=== PATIENT | male | born 1955 | race African-American/Black ===

== ENCOUNTER 2024-06-20 21:07 | Observation (INO) ==
[2024-06-20 21:36] LABS: Basophils # (auto) 0.02 K/uL (0.00-0.20); Basophils % (auto) 0.5 %; Eosinophils # (auto) 0.04 K/uL (0.00-0.50); Eosinophils % (auto) 0.9 %; Hematocrit (blood only) 41.9 % (42.0-52.0); Hemoglobin 14.1 g/dl (14.0-18.0); Immature Granulocytes # (auto) 0.05 K/uL (0.01-0.20); Immature Granulocytes % (auto) 1.2 %; Lymphocytes # (auto) 1.73 K/uL (1.20-3.40); Mean Corpuscular Hemoglobin 27.6 pg (25.0-34.0); Mean Corpuscular Hgb Conc 33.7 g/dL (32.0-36.0); Mean Platelet Volume 9.8 fL (9.4-12.4); Monocytes # (auto) 0.71 K/uL (0.11-0.59); Monocytes % (auto) 16.4 %; Neutrophils # (auto) 1.78 K/uL (1.40-6.50); Platelet Count 175 K/uL (130-400); RDW Coefficient of Variation 13.3 % (11.5-14.5); RDW Standard Deviation 40.2 fL (36.4-46.3); Red Blood Count 5.11 M/uL (4.70-6.10); White Blood Count 4.33 K/ul (4.8-10.8)
[2024-06-20 21:54] LABS: Albumin Globulin Ratio 1.1 (0.9-2); Albumin Level 3.9 gm/dl (3.4-5.0); BUN Creatinine Ratio 12.3 (10-20); Bilirubin,Total 0.4 mg/dl (0.2-1.0); Creatinine Clr Calc Pharmacy 30.5 ml/min; Globulin 3.5 gm/dl (2.5-4.0); Potassium 4.2 mmol/L (3.5-5.1); Total Protein 7.4 gm/dl (6.0-8.3)
[2024-06-20 22:00] LABS: Troponin I High Sensitivity 4.9 pg/ml (0-20)
[2024-06-20 22:07] LABS: Partial Thromboplastin Ratio 0.9; Partial Thromboplastin Time 25 Seconds (21-31); Prothrombin Time 10.9 Seconds (9.0-12.0)
--- NOTE | 2024-06-20 23:25 | XRay Report ---
Exam(s): XR CXR 1 VIEW EXAM: XR Chest, 1 View CLINICAL HISTORY: Reason for exam: Chest pain, nonspecific. TECHNIQUE: Frontal views of the chest. COMPARISON: No relevant prior studies available. FINDINGS: Lungs: No consolidation. Pleural space: No pleural effusion is seen. No pneumothorax. Heart: The heart is normal in size.. Mediastinum: There is uncoiling of the thoracic aorta.. Bones/joints: There are degenerative changes in the spine.. IMPRESSION: No acute pulmonary disease.. Electronically signed by: Michael Dallas MD 06/20/24 23:24 PM
[2024-06-20] MEDS: SODIUM CHLORIDE 0.9% 1,000 ML IV ONE (23:43)
[2024-06-20 23:52] LABS: Magnesium 1.7 mg/dl (1.7-2.4)
--- NOTE | 2024-06-21 00:01 | Emergency Department Note ---
Impression & Plan Syncope, ESTHELA (acute kidney injury), Influenza, CHI (closed head injury), Right bundle branch block, Orthostatic hypotension ED Provider Note ED Provider Note NAME: KVNG [id number] SOTO AGE:69 SEX: Male : 1955 ARRIVES VIA: EMS INFORMANT: Patient ED PROVIDER(s): Coni Koenig DO CHIEF COMPLAINT: Syncope HPI: This is a 69-year-old male presents to the emergency department due to concern for syncopal event. Patient states he feels fine at this time. He does not recall any preceding or prodromal symptoms. He states he has previously passed out and feels it was likely from the strong smell of incense in the temple at the correctional facility. Patient does have a history of CAD and diabetes. Patient denies any recent change in medications. Patient does feel he staying well-hydrated. Patient states he has had nasal congestion and cough in the last 2 to 3 days and correctional officers at bedside state there have been many other illnesses at the facility. He denies fevers, chills, headaches, blurred vision, chest pain, shortness of breath, abdominal pain, change in urine, change in stools, or leg swelling. Patient states he was putting something away in his cabinet and the next thing he knew he was on the floor. He states witnesses at bedside stated he had passed out. No seizure-like activity was reported. When he was checked by staff he was noted to be hypotensive. They also report he had 2 subsequent episodes of syncope. Patient denied any incontinence or tongue biting during these episodes. PAST MEDICAL HISTORY:See Below PAST SURGICAL HISTORY:See Below FAMILY HISTORY:See Below SOCIAL HISTORY:See Below HOME MEDICATIONS:See Below ALLERGIES:See Below VITALS:See Below PHYSICAL EXAMINATION: GENERAL: alert, well appearing, well nourished, no distress, non-toxic EYE EXAM: normal conjunctiva, PERRL and EOM's grossly intact OROPHARYNX: no exudate, no erythema, lips, buccal mucosa, and tongue normal and mucous membranes are moist NECK: supple, no nuchal rigidity, no adenopathy, non-tender LUNGS: Clear to auscultation. Normal chest wall mechanics, no w/r/r HEART: no murmurs, S1 normal and S2 normal ABDOMEN: abdomen soft, non-tender, normo-active bowel sounds, no masses, no rebound or guarding. BACK: Back is symmetrical on inspection and there is no deformity, no midline tenderness, no CVA tenderness. SKIN: no rashes, petechiae, orbruising UPPER EXTREMITIES: upper extremities are grossly normal. FROM, nml pulses b/l. LOWER EXTREMITIES: No pitting edema. FROM, nml pulses b/l. NEURO EXAM: Normal sensorium, cranial nerves II-XII grossly intact, normal speech, no facial droop,nogross weakness of arms, no gross weakness of legs. Gross sensation intact. No ataxia. Vital Signs: reviewed and remarkable Differential Diagnosis: vasovagal event, infection, hypoglycemia, electrolyte abnormalities, toxidrome, substance abuse, dysrhythmia, ACS, as well as others were entertained. MEDICAL DECISION MAKING: This is a 69-year-old male brought in by EMS after several syncopal episodes this evening with accompanying orthostatic hypotension. Patient denied any preceding symptoms or worsening symptoms since the syncopal events. Patient does have prior history of syncope. Patient does admit to recent nasal and chest congestion and notes there are several illnesses going around the correctional facility currently. He was afebrile and hemodynamically stable on arrival. Labs drawn and sent, IV established, EKG and chest x-ray performed at bedside and interpreted by me. Patient started on IV fluids and after discussion of differential diagnosis at bedside sent for CT head, chest, and abdomen/pelvis. Patient noted to have ESTHELA on labs. Urine collected and sent additionally. Nasal swab sent for viral respiratory panel. Nasal swab positive for 2 different acute viral illnesses. UA without any evidence of hematuria or UTI. Eventually CTs did result and were reassuring. No ectopy or dysrhythmia noted here. Patient's EKG did show right bundle branch block which is new compared to prior. Patient with no chest pain or shortness of breath. I below suspicion for occult PE. Patient not given IV dye for CT angiography to rule out PE due to ESTHELA. Patient continued on IV fluids here. Due to concern for ESTHELA from likely resulting illness, case discussed with the hospitalist team for additional evaluation and management. Consultation(s): 0250: Discussed with Dr. Wilkerson, [facility] hospitalist team, for additional evaluation and management. ER Treatment Provided: See below Diagnostics Interpreted By Me: -ECG: Normal sinus at 79, leftward axis, right bundle branch block, nonspecific ST/T wave changes -Cardiac Monitoring: An order was placed for continuous cardiac monitoring. The monitor shows a rate of 88 with normal sinus rhythm. -Laboratory studies: As stated above and show below. -Imaging studies: CT head: No [facility] Triage Nursing Note Reviewed Prior/Outside Records Reviewed Past Med/Surg History Problem List (Updated 06/21/24 @ 04:54 by Coni Koenig DO) Orthostatic hypotension (Acute) Right bundle branch block (Acute) CHI (closed head injury) (Acute) Influenza (Acute) ESTHELA (acute kidney injury) (Acute) Syncope (Acute) Syncopal episodes (Acute) Diabetes (Chronic) Social History Smoking Status: Never smoker Preferred Language: Italian Feels Safe at Home: Yes Allergies Allergies Allergy/AdvReac Type Severity Reaction Status Date / Time erythromycin base AdvReac Unknown UNKNOWN Unverified 03/19/16 11:46 Penicillins AdvReac Unknown UNKNOWN Unverified 03/19/16 11:46 shellfish derived AdvReac Unknown UNKNOWN Unverified 03/19/16 11:46 Home Meds Home Medications Medication Instructions Recorded Confirmed aspirin 81 mg tablet,delayed 81 mg PO DAILY ##0 03/19/16 06/21/24 release hydrochlorothiazide 12.5 mg tablet 12.5 mg PO DAILY #0 tabs 03/19/16 06/21/24 lisinopril 20 mg tablet 20 mg PO DAILY #0 tabs 03/19/16 06/21/24 metformin 500 mg tablet 500 mg PO BID #0 tabs 03/19/16 06/21/24 nitroglycerin 0.4 mg sublingual 0.4 mg sublingual TID #0 BTLS 03/19/16 06/21/24 tablet (Nitrostat) rosuvastatin 20 mg tablet (Crestor) 20 mg PO DAILY #0 tabs 03/19/16 06/21/24 lidocaine HCl 5 % topical ointment 1 applic topical BID PRN Pain 06/21/24 06/21/24 pantoprazole 40 mg tablet,delayed 40 mg PO DAILY 06/21/24 06/21/24 release (Protonix) propranolol 60 mg tablet 60 mg PO TID 06/21/24 06/21/24 tamsulosin 0.4 mg capsule (Flomax) 0.4 mg PO ONCE 06/21/24 06/21/24 Results & Data (ED) Vital Signs Vital Signs - 24 hr 06/20/24 21:10 06/20/24 21:11 06/20/24 21:14 Temperature 36.9 C Temperature Source Oral Pulse Rate 78 78 Pulse Rate from SpO2 Sensor Pulse Rhythm Regular Pulse Strength Normal Respiratory Rate 16 Respiratory Effort / Characteristics Non-Labored Spontaneous Respiratory Depth Normal Respiratory Pattern Regular Blood Pressure 105/63 105/63 Blood Pressure Mean 77 74 Blood Pressure Position Sitting Pulse Oximetry 98 Oxygen Delivery Method Room Air Sepsis Recent Fever Within 48 Hours No Sepsis New/Unexplained Change in Mental Status N/A Sepsis Action Taken by Nursing No Action Required 06/20/24 21:19 06/20/24 21:22 06/20/24 21:22 Temperature Temperature Source Pulse Rate Pulse Rate from SpO2 Sensor Pulse Rhythm Pulse Strength Respiratory Rate Respiratory Effort / Characteristics Respiratory Depth Respiratory Pattern Blood Pressure 101/65 Blood Pressure Mean 77 Blood Pressure Position Pulse Oximetry Oxygen Delivery Method Room Air Room Air Sepsis Recent Fever Within 48 Hours Sepsis New/Unexplained Change in Mental Status Sepsis Action Taken by Nursing 06/20/24 21:24 06/20/24 21:27 06/20/24 21:30 Temperature Temperature Source Pulse Rate 75 74 Pulse Rate from SpO2 Sensor 74 74 Pulse Rhythm Pulse Strength Respiratory Rate 15 17 Respiratory Effort / Characteristics Respiratory Depth Respiratory Pattern Blood Pressure 97/62 L Blood Pressure Mean 66 Blood Pressure Position Pulse Oximetry 94 97 Oxygen Delivery Method Sepsis Recent Fever Within 48 Hours Sepsis New/Unexplained Change in Mental Status Sepsis Action Taken by Nursing 06/20/24 21:42 06/20/24 21:57 06/20/24 22:03 Temperature Temperature Source Pulse Rate 76 76 68 Pulse Rate from SpO2 Sensor 76 76 67 Pulse Rhythm Pulse Strength Respiratory Rate 17 16 18 Respiratory Effort / Characteristics Respiratory Depth Respiratory Pattern Blood Pressure 115/91 Blood Pressure Mean 99 Blood Pressure Position Pulse Oximetry 95 98 98 Oxygen Delivery Method Sepsis Recent Fever Within 48 Hours Sepsis New/Unexplained Change in Mental Status Sepsis Action Taken by Nursing 06/20/24 22:24 06/20/24 22:30 06/20/24 22:32 Temperature Temperature Source Pulse Rate 71 67 Pulse Rate from SpO2 Sensor 72 69 Pulse Rhythm Pulse Strength Respiratory Rate 17 Respiratory Effort / Characteristics Respiratory Depth Respiratory Pattern Blood Pressure 115/74 Blood Pressure Mean 83 Blood Pressure Position Pulse Oximetry 96 82 L Oxygen Delivery Method Sepsis Recent Fever Within 48 Hours Sepsis New/Unexplained Change in Mental Status Sepsis Action Taken by Nursing 06/20/24 22:54 06/20/24 23:00 06/20/24 23:06 Temperature Temperature Source Pulse Rate 63 67 Pulse Rate from SpO2 Sensor 65 68 Pulse Rhythm Pulse Strength Respiratory Rate 17 13 Respiratory Effort / Characteristics Respiratory Depth Respiratory Pattern Blood Pressure 94/69 L Blood Pressure Mean 71 Blood Pressure Position Pulse Oximetry 97 99 Oxygen Delivery Method Sepsis Recent Fever Within 48 Hours Sepsis New/Unexplained Change in Mental Status Sepsis Action Taken by Nursing 06/20/24 23:15 06/20/24 23:31 06/20/24 23:48 Temperature Temperature Source Pulse Rate 67 61 90 Pulse Rate from SpO2 Sensor 67 60 90 Pulse Rhythm Pulse Strength Respiratory Rate 17 14 20 Respiratory Effort / Characteristics Respiratory Depth Respiratory Pattern Blood Pressure 139/91 Blood Pressure Mean 97 Blood Pressure Position Pulse Oximetry 97 98 98 Oxygen Delivery Method Room Air Room Air Sepsis Recent Fever Within 48 Hours Sepsis New/Unexplained Change in Mental Status Sepsis Action Taken by Nursing 06/21/24 00:00 06/21/24 00:30 06/21/24 00:36 Temperature Temperature Source Pulse Rate 71 68 Pulse Rate from SpO2 Sensor 71 68 Pulse Rhythm Pulse Strength Respiratory Rate 22 17 Respiratory Effort / Characteristics Respiratory Depth Respiratory Pattern Blood Pressure 130/87 118/82 Blood Pressure Mean 91 94 Blood Pressure Position Pulse Oximetry 99 100 Oxygen Delivery Method Room Air Sepsis Recent Fever Within 48 Hours Sepsis New/Unexplained Change in Mental Status Sepsis Action Taken by Nursing 06/21/24 01:00 06/21/24 01:05 06/21/24 01:33 Temperature Temperature Source Pulse Rate 60 60 Pulse Rate from SpO2 Sensor 61 Pulse Rhythm Pulse Strength Respiratory Rate 16 Respiratory Effort / Characteristics Respiratory Depth Respiratory Pattern Blood Pressure 121/77 112/80 Blood Pressure Mean 88 90 Blood Pressure Position Pulse Oximetry 97 Oxygen Delivery Method Sepsis Recent Fever Within 48 Hours Sepsis New/Unexplained Change in Mental Status Sepsis Action Taken by Nursing 06/21/24 02:00 06/21/24 02:24 06/21/24 03:00 Temperature Temperature Source Pulse Rate 61 63 Pulse Rate from SpO2 Sensor Pulse Rhythm Pulse Strength Respiratory Rate 14 16 Respiratory Effort / Characteristics Respiratory Depth Respiratory Pattern Blood Pressure 121/84 139/91 Blood Pressure Mean 93 100 Blood Pressure Position Pulse Oximetry 98 Oxygen Delivery Method Sepsis Recent Fever Within 48 Hours Sepsis New/Unexplained Change in Mental Status Sepsis Action Taken by Nursing 06/21/24 03:03 06/21/24 03:30 06/21/24 04:00 Temperature Temperature Source Pulse Rate 60 60 57 L Pulse Rate from SpO2 Sensor 61 59 L 58 L Pulse Rhythm Pulse Strength Respiratory Rate 15 14 16 Respiratory Effort / Characteristics Respiratory Depth Respiratory Pattern Blood Pressure 164/95 H 135/86 Blood Pressure Mean 118 113 Blood Pressure Position Pulse Oximetry 97 98 99 Oxygen Delivery Method Room Air Room Air Room Air Sepsis Recent Fever Within 48 Hours Sepsis New/Unexplained Change in Mental Status Sepsis Action Taken by Nursing Laboratory Data 06/20/24 21:20 06/20/24 21:20 Lab Results 06/20/24 06/20/24 06/20/24 Range/Units 21:20 23:58 Unknown WBC 4.33 L (4.8-10.8) K/ul RBC 5.11 (4.70-6.10) M/uL Hgb 14.1 (14.0-18.0) g/dl Hct 41.9 L (42.0-52.0) % MCV 82.0 (80.0-100.0) fL MCH 27.6 (25.0-34.0) pg MCHC 33.7 (32.0-36.0) g/dL RDW Std Deviation 40.2 (36.4-46.3) fL RDW Coeff of Timothy 13.3 (11.5-14.5) % Plt Count 175 (130-400) K/uL MPV 9.8 (9.4-12.4) fL Immature Gran % (Auto) 1.2 % Neut % (Auto) 41.0 % Lymph % (Auto) 40.0 % Hardeman % (Auto) 16.4 % Eos % (Auto) 0.9 % Baso % (Auto) 0.5 % Neut # (Auto) 1.78 (1.40-6.50) K/uL Lymph # (Auto) 1.73 (1.20-3.40) K/uL Hardeman # (Auto) 0.71 H (0.11-0.59) K/uL Eos # (Auto) 0.04 (0.00-0.50) K/uL Baso # (Auto) 0.02 (0.00-0.20) K/uL Immature Gran # (Auto) 0.05 (0.01-0.20) K/uL PT 10.9 (9.0-12.0) Seconds INR 1.0 (0.9-1.1) APTT 25 (21-31) Seconds PTT Ratio 0.9 Sodium 135 L (136-145) mmol/L Potassium 4.2 (3.5-5.1) mmol/L Chloride 104 (98-107) mmol/L Carbon Dioxide 22 (21-32) mmol/L Anion Gap 9 (3-11) BUN 28 H (6-23) mg/dl Creatinine 2.28 H (0.6-1.4) mg/dl Est Cr Clr Drug Dosing 30.5 ml/min eGFR 29.93 BUN/Creatinine Ratio 12.3 (10-20) Glucose 155 H (70-99(Fasting)) mg/dl Calcium 9.0 (8.6-10.3) mg/dl Magnesium 1.7 (1.7-2.4) mg/dl Total Bilirubin 0.4 (0.2-1.0) mg/dl AST 23 (13-39) U/L ALT 15 (7-52) U/L Alkaline Phosphatase 62 (34-104) U/L Troponin I High Sens 4.9 (0-20) pg/ml Total Protein 7.4 (6.0-8.3) gm/dl Albumin 3.9 (3.4-5.0) gm/dl Globulin 3.5 (2.5-4.0) gm/dl Albumin/Globulin Ratio 1.1 (0.9-2) TSH 6.014 H (0.300-4.500) uIu/ml Free T4 0.78 (0.61-1.60) ng/dl Urine Color Yellow Urine Appearance Clear (Clear) Urine pH 5.0 (4.5-7.5) Ur Specific Gifford 1.022 (1.000-1.030) Urine Protein Trace H (Negative) Urine Glucose (UA) Negative (Negative) Urine Ketones Trace H (Negative) Urine Blood Negative (Negative) Urine Nitrite Negative (Negative) Urine Bilirubin Negative (Negative) Urine Urobilinogen Negative (Negative) Ur Leukocyte Esterase Negative (Negative) Urine WBC (Auto) 0-5 (0-5) /hpf Urine RBC (Auto) 0-2 (0-2) /hpf U Hyaline Cast (Auto) >20 H (0-2) /lpf U Epithel Cells (Auto) 0-2 (0-2) /hpf Urine Bacteria (Auto) None Seen (None Seen) Adenovirus (PCR) Not Detected (NotDetected) B. pertussis DNA (PCR) Not Detected (NotDetected) B.parapertussis DNA PCR Not Detected (NotDetected) C. pneumoniae DNA (PCR) Not Detected (NotDetected) Coronavirus OC43 (PCR) DETECTED A (NotDetected) Coronavirus HKU1 (PCR) Not Detected (NotDetected) Coronavirus 229E (PCR) Not Detected (NotDetected) SARS-CoV-2 (PCR) Not Detected (NotDetected) Coronavirus NL63 (PCR) Not Detected (NotDetected) Human Metapneumovir PCR Not Detected (NotDetected) Influenza A (H3) PCR DETECTED A (NotDetected) Influenza Type B (PCR) Not Detected (NotDetected) M. pneumoniae (PCR) Not Detected (NotDetected) Parainfluenza 1 (PCR) Not Detected (NotDetected) Parainfluenza 2 (PCR) Not Detected (NotDetected) Parainfluenza 3 (PCR) Not Detected (NotDetected) Parainfluenza 4 (PCR) Not Detected (NotDetected) RSV (PCR) Not Detected (NotDetected) Entero/Rhino (PCR) Not Detected (NotDetected) Administered Medications Sodium Chloride (Nss) 1,000 mls @ 125 mls/hr IV .Q8H BRAD Stop: 06/22/24 02:44 Last Admin: 06/21/24 03:06 Dose: 125 mls/hr Documented By: ABIOLA Discontinued Medications Sodium Chloride (Nss) 1,000 mls @ 999 mls/hr IV .Q1H1M ONE Stop: 06/21/24 00:33 Last Infusion: 06/21/24 00:36 Dose: Infused Documented By: Admin: 06/20/24 23:43 Dose: 999 mls/hr Documented By: RUTHIE Imaging Data Radiologist's Impression: Chest X-Ray 06/20/24 21:22 Exam(s): XR CXR 1 VIEW EXAM: XR Chest, 1 View CLINICAL HISTORY: Reason for exam: Chest pain, nonspecific. TECHNIQUE: Frontal views of the chest. COMPARISON: No relevant prior studies available. FINDINGS: Lungs: No consolidation. Pleural space: No pleural effusion is seen. No pneumothorax. Heart: The heart is normal in size.. Mediastinum: There is uncoiling of the thoracic aorta.. Bones/joints: There are degenerative changes in the spine.. IMPRESSION: No acute pulmonary disease.. Electronically signed by: Michael Dallas MD 06/20/24 23:24 PM Abdomen/Pelvis CT 06/20/24 23:33 EXAM: CT abd pelvis wo con CLINICAL HISTORY: syncope, chi TECHNIQUE: Non-contrast CT of the abdomen and pelvis was performed, with the following protocol: axial images, and reconstructed coronal and sagittal images. One of the following dose reduction techniques was utilized for this exam: Automated exposure control, adjustment of the mA and/or kV according to patient size, and use of iterative reconstruction. COMPARISON: No prior studies available for comparison. FINDINGS: Abdomen: Liver: Normal in size, shape, and density. No focal lesions, cysts, or masses were identified. Gallbladder and Biliary System: The gallbladder is normal in size and shape. No wall thickening, pericholecystic fluid, or gallstones were identified. Pancreas: Pancreatic head, body, and tail are visualized and appear normal in size and density. No pancreatic masses or calcifications were noted. Spleen: Normal in size, shape, and density. No splenic lesions or masses were identified. Appendix: The appendix is normal in size without rosana appendiceal fat stranding, and without an appendicolith. No evidence of appendiceal abscess or perforation. Kidneys and Adrenal Glands: Both kidneys are normal in size, shape, and position. Cortical thickness is within normal limits. No renal calculi or hydronephrosis. Adrenal glands are unremarkable. Abdominal Aorta and Vessels: The abdominal aorta and major branches are patent without evidence of an aneurysm . Mild atherosclerosis noted. Pelvis: Urinary Bladder: Partially distended, showing diffuse increased wall thickness. No intraluminal lesions. Prostate: Enlarged in size with normal contour. No masses or abnormal thickening. Seminal Vesicles: Normal appearance without abnormal enlargement or mass. Peritoneal and Retroperitoneal Structures: No free fluid or abnormal fluid collections were identified within the abdomen or pelvis. No lymphadenopathy was noted. Bowel: The visualized bowel loops are normal in caliber and appearance. No evidence of bowel obstruction or wall thickening. Bones and Soft Tissues: Pelvic bones and soft tissues are unremarkable. No fractures or abnormal masses were identified. IMPRESSION: 1. Diffuse urinary bladder wall thickening suspicious of cystitis; clinical correlation and further assessment are advised. 2. Prostate enlargement. Electronically signed by Hubert Narvaez 06-21-2024 02:[address] 06/20/24 23:33 EXAM: CT chest diagnostic wo con CLINICAL HISTORY: Syncope. TECHNIQUE: Contiguous axial CT images of the chest were acquired without administration of intravenous contrast. Coronal and sagittal reconstructions were obtained. One of the following dose reduction techniques were utilized for this exam: Automated exposure control, adjustment of the mA and/or kV according to patient size, and use of iterative reconstruction. DLP: 2748.7 mGy-cm. CTDI: 84.5 mGy. COMPARISON: CR 10/08/2023. FINDINGS: Lungs: The lung parenchyma is clear with no evidence of consolidation, collapse, or focal lesions. No pulmonary nodules or masses are identified. No evidence of interstitial lung disease or emphysema. No pleural effusion or pleural thickening. Mediastinum: The mediastinum is normal in size and contour. No mediastinal mass or abnormal lymphadenopathy. The heart size is within normal limits. Coronary and aortic atherosclerosis. Hilar Structures: The hilar structures appear normal without enlargement or abnormality. Trachea and Main Bronchi: The trachea and main bronchi are patent without evidence of obstruction or abnormality. Chest Wall: The chest wall is unremarkable with no evidence of soft tissue or bony abnormalities. Upper Abdomen: Visualized portions of the liver, spleen, adrenal glands, and kidneys are unremarkable. Bones: Visualized osseous structures are normal, with no evidence of fracture or lytic/sclerotic lesions. IMPRESSION: 1. Normal CT of the chest without contrast. 2. No interval changes. 3. Electronically signed by Hubert Narvaez 06-21-2024 02:[address] 06/20/24 23:34 EXAM: CT head/brain wo con CLINICAL HISTORY: None TECHNIQUE: Multiple axial images are obtained from the skull base to the vertex without contrast. CT scan was performed according to ALARA (as low as reasonable achievable). COMPARISON: 19 March 2016. FINDINGS: Focal encephalomalacia with gliosis noted involving bilateral frontal lobe cortex and subcortical white matter - sequelae of prior insult. There is cerebral atrophy. No evidence of space occupying lesion, hemorrhage, edema, mass effect, midline shift, extra axial collection, or hydrocephalus is noted. Basal cisterns are symmetric and normal in size and configuration. There are scattered periventricular hypodensities as can be seen with chronic microvascular ischemic changes. The claudio-white matter differentiation is preserved. Visualized paranasal sinuses and mastoid air cells are well aerated. Orbital contents are within normal limits. Bony structures are intact. IMPRESSION: 1. No evidence of acute intracranial abnormality is demonstrated. 2. Chronic microvascular ischemic changes. 3. Cerebral atrophy. 4. Focal encephalomalacia with gliosis noted involving bilateral frontal lobe cortex and subcortical white matter - sequelae of prior insult -stable. No other new interval abnormality since prior study. Electronically signed by Riki Duque 06-21-2024 02:28 AM Discharge Plan Visit Data Chief Complaint: Syncope Stated Complaint: SYNCOPE, HYPOTENSION ED Provider: Coni Koenig Discharge Problem: Syncope, ESTHELA (acute kidney injury), Influenza, CHI (closed head injury), Right bundle branch block, Orthostatic hypotension Forms Stand Alone Forms: Neogrowth Prescriptions Prescriptions: No Action metformin 500 mg Tablet 500 mg PO BID Qty: 0 lisinopril 20 mg Tablet 20 mg PO DAILY Qty: 0 aspirin 81 mg Tablet,Delayed Release (Dr/Ec) 81 mg PO DAILY Qty: 0 nitroglycerin [Nitrostat] 0.4 mg Tablet, Sublingual 0.4 mg sublingual TID Qty: 0 Patient Comments: 1 TAB EVERY 5 MINS FOR CHEST PAIN, REPEAT X3, IF NO RELIEF CALL MD NEEDED Rx Instructions: 1 tab SL every 5 min for CP, repeat x3, if no relief call MD as needed. rosuvastatin [Crestor] 20 mg Tablet 20 mg PO DAILY Qty: 0 hydrochlorothiazide 12.5 mg Tablet 12.5 mg PO DAILY Qty: 0 propranolol 60 mg Tablet 60 mg PO TID tamsulosin [Flomax] 0.4 mg Capsule 0.4 mg PO ONCE pantoprazole [Protonix] 40 mg Tablet,Delayed Release (Dr/Ec) 40 mg PO DAILY Xylocaine 5 % Ointment 1 applic TOPICAL BID PRN (Reason: Pain) Referrals Referrals: Otto HERNANDEZ [Primary Care Provider] -
[2024-06-21 00:08] LABS: Thyroid Stimulating Hormone 6.014 uIu/ml (0.300-4.500)
[2024-06-21 00:34] LABS: Appearance Urine Clear (Clear); Bacteria Urine Automated None Seen (None Seen); Bilirubin Urine Negative (Negative); Blood Urine Negative (Negative); Cast Urine Automated >20 /lpf (0-2); Color Urine Yellow; Epithelial Cell Urine Auto 0-2 /hpf (0-2); Glucose Urine UA Negative (Negative); Ketones Urine Trace (Negative); Leukocyte Esterase Urine Negative (Negative); Nitrite Urine Negative (Negative); Protein Urine Trace (Negative); RBC Urine Automated 0-2 /hpf (0-2); Specific Gravity Urine 1.022 (1.000-1.030); Urobilinogen Urine Negative (Negative); WBC Urine Automated 0-5 /hpf (0-5)
[2024-06-21 00:47] LABS: T4 Free Thyroxine 0.78 ng/dl (0.61-1.60)
[2024-06-21 00:50] LABS: Adenovirus PCR Not Detected (NotDetected); Bordetella parapertussis PCR Not Detected (NotDetected); Bordetella pertussis PCR Not Detected (NotDetected); Chlamydia pneumoniae PCR Not Detected (NotDetected); Coronavirus 229E PCR Not Detected (NotDetected); Coronavirus CoV-2 (COVID19)PCR Not Detected (NotDetected); Coronavirus HKU1 PCR Not Detected (NotDetected); Coronavirus NL63 PCR Not Detected (NotDetected); Coronavirus OC43PCR DETECTED (NotDetected); Human Metapneumovirus PCR Not Detected (NotDetected); Influenza A (H3) PCR DETECTED (NotDetected); Influenza B PCR Not Detected (NotDetected); Mycoplasma pneumoniae PCR Not Detected (NotDetected); Parainfluenza Virus 1 PCR Not Detected (NotDetected); Parainfluenza Virus 2 PCR Not Detected (NotDetected); Parainfluenza Virus 3 PCR Not Detected (NotDetected); Parainfluenza Virus 4 PCR Not Detected (NotDetected); Respiratory Syncytial VirusPCR Not Detected (NotDetected); Rhinovirus/Enterovirus PCR Not Detected (NotDetected)
--- NOTE | 2024-06-21 02:28 | CT Scan Report ---
EXAM: CT head/brain wo con CLINICAL HISTORY: None TECHNIQUE: Multiple axial images are obtained from the skull base to the vertex without contrast. CT scan was performed according to ALARA (as low as reasonable achievable). COMPARISON: 19 March 2016. FINDINGS: Focal encephalomalacia with gliosis noted involving bilateral frontal lobe cortex and subcortical white matter - sequelae of prior insult. There is cerebral atrophy. No evidence of space occupying lesion, hemorrhage, edema, mass effect, midline shift, extra axial collection, or hydrocephalus is noted. Basal cisterns are symmetric and normal in size and configuration. There are scattered periventricular hypodensities as can be seen with chronic microvascular ischemic changes. The claudio-white matter differentiation is preserved. Visualized paranasal sinuses and mastoid air cells are well aerated. Orbital contents are within normal limits. Bony structures are intact. IMPRESSION: 1. No evidence of acute intracranial abnormality is demonstrated. 2. Chronic microvascular ischemic changes. 3. Cerebral atrophy. 4. Focal encephalomalacia with gliosis noted involving bilateral frontal lobe cortex and subcortical white matter - sequelae of prior insult -stable. No other new interval abnormality since prior study. Electronically signed by Riki Duque 06-21-2024 02:28 AM
--- NOTE | 2024-06-21 02:43 | CT Scan Report ---
EXAM: CT abd pelvis wo con CLINICAL HISTORY: syncope, chi TECHNIQUE: Non-contrast CT of the abdomen and pelvis was performed, with the following protocol: axial images, and reconstructed coronal and sagittal images. One of the following dose reduction techniques was utilized for this exam: Automated exposure control, adjustment of the mA and/or kV according to patient size, and use of iterative reconstruction. COMPARISON: No prior studies available for comparison. FINDINGS: Abdomen: Liver: Normal in size, shape, and density. No focal lesions, cysts, or masses were identified. Gallbladder and Biliary System: The gallbladder is normal in size and shape. No wall thickening, pericholecystic fluid, or gallstones were identified. Pancreas: Pancreatic head, body, and tail are visualized and appear normal in size and density. No pancreatic masses or calcifications were noted. Spleen: Normal in size, shape, and density. No splenic lesions or masses were identified. Appendix: The appendix is normal in size without rosana appendiceal fat stranding, and without an appendicolith. No evidence of appendiceal abscess or perforation. Kidneys and Adrenal Glands: Both kidneys are normal in size, shape, and position. Cortical thickness is within normal limits. No renal calculi or hydronephrosis. Adrenal glands are unremarkable. Abdominal Aorta and Vessels: The abdominal aorta and major branches are patent without evidence of an aneurysm . Mild atherosclerosis noted. Pelvis: Urinary Bladder: Partially distended, showing diffuse increased wall thickness. No intraluminal lesions. Prostate: Enlarged in size with normal contour. No masses or abnormal thickening. Seminal Vesicles: Normal appearance without abnormal enlargement or mass. Peritoneal and Retroperitoneal Structures: No free fluid or abnormal fluid collections were identified within the abdomen or pelvis. No lymphadenopathy was noted. Bowel: The visualized bowel loops are normal in caliber and appearance. No evidence of bowel obstruction or wall thickening. Bones and Soft Tissues: Pelvic bones and soft tissues are unremarkable. No fractures or abnormal masses were identified. IMPRESSION: 1. Diffuse urinary bladder wall thickening suspicious of cystitis; clinical correlation and further assessment are advised. 2. Prostate enlargement. Electronically signed by Hubert Narvaez 06-21-2024 02:42 AM
--- NOTE | 2024-06-21 02:45 | CT Scan Report ---
EXAM: CT chest diagnostic wo con CLINICAL HISTORY: Syncope. TECHNIQUE: Contiguous axial CT images of the chest were acquired without administration of intravenous contrast. Coronal and sagittal reconstructions were obtained. One of the following dose reduction techniques were utilized for this exam: Automated exposure control, adjustment of the mA and/or kV according to patient size, and use of iterative reconstruction. DLP: 2748.7 mGy-cm. CTDI: 84.5 mGy. COMPARISON: CR 10/08/2023. FINDINGS: Lungs: The lung parenchyma is clear with no evidence of consolidation, collapse, or focal lesions. No pulmonary nodules or masses are identified. No evidence of interstitial lung disease or emphysema. No pleural effusion or pleural thickening. Mediastinum: The mediastinum is normal in size and contour. No mediastinal mass or abnormal lymphadenopathy. The heart size is within normal limits. Coronary and aortic atherosclerosis. Hilar Structures: The hilar structures appear normal without enlargement or abnormality. Trachea and Main Bronchi: The trachea and main bronchi are patent without evidence of obstruction or abnormality. Chest Wall: The chest wall is unremarkable with no evidence of soft tissue or bony abnormalities. Upper Abdomen: Visualized portions of the liver, spleen, adrenal glands, and kidneys are unremarkable. Bones: Visualized osseous structures are normal, with no evidence of fracture or lytic/sclerotic lesions. IMPRESSION: 1. Normal CT of the chest without contrast. 2. No interval changes. 3. Electronically signed by Hubert Narvaez 06-21-2024 02:44 AM
[2024-06-21] MEDS: SODIUM CHLORIDE 0.9% 1,000 ML IV SCH (03:06)
--- NOTE | 2024-06-21 05:24 | History & Physical Report ---
Date of Service June 21, 2024 Assessment & Plan (1) ESTHELA (acute kidney injury): Plan: 69 y/o male with PMH of HTN, DM and CAD here due to syncope found with ESTHELA - Poor PO intake and dehydration due to acute illness. Patient positive to coronavirus and Influenza A - Cr. 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 He refers being on his bunk when he tried to put something and the thing he remember is waking up on the floor. He denied any prodromal symptoms, dizziness, lightheadedness or palpitation before the syncope. No involuntary movements, or seizure like activity. He refers having some runny nose and sporadic cough since a couple of days ago. He refers that had been eating a lot of ice cream instead of full meals. Denied any fevers, chills. Denied any chest pain, SOB, or palpitations. No nausea, vomiting, diarrhea or headaches. No black stools. no change of visions ED course: IV fluids given. Lab remarkable for Cr. of 2.28. Hyponatremia. Biofire positive for influenza A and coronavirus CT: Head: Chronic microvascular ischemic changes. CT chest: Normal CT of the chest without contrast. CT abdomen/Pelvis: Normal UA without any evidence of hematuria or UTI. Primary Care Provider: DAVID Menjivar Allergies Allergy/AdvReac Type Severity Reaction Status Date / Time erythromycin base AdvReac Unknown UNKNOWN Unverified 03/19/16 11:46 Penicillins AdvReac Unknown UNKNOWN Unverified 03/19/16 11:46 shellfish derived AdvReac Unknown UNKNOWN Unverified 03/19/16 11:46 Home Medications Medication Instructions Recorded Confirmed Type aspirin 81 mg tablet,delayed 81 mg PO DAILY ##0 03/19/16 06/21/24 History release hydrochlorothiazide 12.5 mg tablet 12.5 mg PO DAILY #0 tabs 03/19/16 06/21/24 History lisinopril 20 mg tablet 20 mg PO DAILY #0 tabs 03/19/16 06/21/24 History metformin 500 mg tablet 500 mg PO BID #0 tabs 03/19/16 06/21/24 History nitroglycerin 0.4 mg sublingual 0.4 mg sublingual TID #0 BTLS 03/19/16 06/21/24 History tablet (Nitrostat) rosuvastatin 20 mg tablet (Crestor) 20 mg PO DAILY #0 tabs 03/19/16 06/21/24 History lidocaine HCl 5 % topical ointment 1 applic topical BID PRN Pain 06/21/2405/26 History pantoprazole 40 mg tablet,delayed 40 mg PO DAILY 06/21/24 06/21/24 History release (Protonix) propranolol 60 mg tablet 60 mg PO TID 06/21/24 06/21/24 History tamsulosin 0.4 mg capsule (Flomax) 0.4 mg PO ONCE 06/21/24 06/21/24 History Past Med/Surg History Problem List (Updated 06/21/24 @ 05:27 by James Blanca) Hypertension Coronavirus infection Orthostatic hypotension (Acute) Right bundle branch block (Acute) CHI (closed head injury) (Acute) Influenza (Acute) ESTHELA (acute kidney injury) (Acute) Syncope (Acute) Syncopal episodes (Acute) Diabetes (Chronic) Social History Smoking Status: Never smoker Hx Alcohol Use: No Hx Substance Use: No Preferred Language: Nepalese Communication Ability: Effective Stock Puller Required: No Beliefs That Will Affect Care: Mu-Ism Current Living Situation: Other Current Living Situation Comment: [facility] Feels Safe at Home: Yes Safety Concerns: Feels Safe At This Time Assistive Devices: None Review of Systems Review of Systems: as per HPI Physical Exam Constitutional: WD/WN, vitals as above Eyes: PERRL, conjunctivae normal, anicteric sclerae Respiratory: normal respiratory effort, lungs clear to auscultation Cardiovascular: RRR, no murmur, no edema Gastrointestinal (Abdomen): normal bowel sounds, soft, nontender, no hepatosplenomegaly Results & Data Results & Data Vital Signs (Past 12 Hours) Vital Signs Temp Pulse Resp BP Pulse Ox O2 Del Method 06/21/24 03:30 60 14 164/95 H 98 Room Air 06/21/24 03:03 60 15 97 Room Air 06/21/24 03:00 139/91 06/21/24 02:24 63 16 06/21/24 02:00 61 14 121/84 98 06/21/24 01:33 60 16 112/80 97 06/21/24 01:05 60 06/21/24 01:00 121/77 06/21/24 00:36 68 17 100 06/21/24 00:30 71 22 118/82 99 Room Air 06/21/24 00:00 130/87 06/20/24 23:48 90 20 98 Room Air 06/20/24 23:31 61 14 139/91 98 Room Air 06/20/24 23:15 67 17 97 06/20/24 23:06 67 13 99 06/20/24 23:00 94/69 L 06/20/24 22:54 63 17 97 06/20/24 22:32 115/74 06/20/24 22:30 67 17 82 L 06/20/24 22:24 71 96 06/20/24 22:03 68 18 115/91 98 06/20/24 21:57 76 16 98 06/20/24 21:42 76 17 95 06/20/24 21:30 97/62 L 06/20/24 21:27 74 17 97 06/20/24 21:24 75 15 94 06/20/24 21:22 Room Air 06/20/24 21:22 Room Air 06/20/24 21:19 101/65 06/20/24 21:14 78 06/20/24 21:11 105/63 06/20/24 21:10 36.9 C 78 16 105/63 98 Room Air Supervising Physician Co-Signing Physician Notes Attending addendum: I have physically seen this patient, have supervised the medical residents activities, and agree with the H&P unless as otherwise noted. Assessment and Plan: The patient is a 69-year-old male prisoner with past medical history including hypertension, CAD, diabetes mellitus, who presents to the emergency department due to multiple syncopal episodes witnessed at the custodial earlier in the day today. Patient reports no warning symptoms. He was not described as having any any involuntary movements suggestive of seizure-like activity. He did have some runny nose and sporadic cough for couple days. He reports that he had been eating a lot of ice cream instead of full meals. #Acute kidney injury- Creatinine 2.28 on admission, with base 1.33 Patient received 1 L normal saline from the ED and will continue 125 mL/h times 1 additional liter Recheck laboratories in the a.m. Hold lisinopril and HCTZ #Syncope- Secondary to dehydration and hypovolemia Decreased oral intake associated with to coronaviruses CT head negative for acute change, did showing chronic small vessel disease The patient will be admitted to telemetry for serial cardiac enzymes, serial EKG's, cardiac rhythm monitoring and a 2-D echocardiogram with Dopplers. #Influenza A H3, and coronavirus OC 43 simultaneous infections- Causing decreased oral intake, leading to hypovolemia and syncopal episodes Supportive therapy #Diabetes mellitus-hold metformin Patient Accu-Cheks with NovoLog SSI Hypertension- Holding HCTZ and lisinopril as noted Resident Activity Tracking Resident Involvement: Resident Care Provided Care Provided: Adult Hospital Medicine
[2024-06-21] MEDS ORDERED: GLUCAGON FOR INJ 1 MG VIAL SQ PRN (05:32)
[2024-06-21] MEDS ORDERED: ACETAMINOPHEN 325 MG TAB PO PRN (05:32)
[2024-06-21] MEDS ORDERED: GLUCOSE 10 TAB/TUBE PO PRN (05:32)
[2024-06-21] MEDS ORDERED: ONDANSETRON INJ 2 MG/ML 2 ML VIAL IV PRN (05:32)
[2024-06-21] MEDS ORDERED: DEXTROSE 50% 50 ML SYRINGE IV PRN (05:32)
[2024-06-21] MEDS ORDERED: GLUCOSE 40% GEL 15 GM TUBE PO PRN (05:32)
[2024-06-21] MEDS ORDERED: CARBOHYDRATES FOR HYPOGLYCEMIA PO PRN (05:32)
[2024-06-21] MEDS: METOPROLOL TARTRATE 25 MG TAB PO SCH (08:14)
[2024-06-21] MEDS: HEPARIN SOD 5,000 UNIT/0.5 ML VIAL SQ SCH (08:14)
[2024-06-21] MEDS: INSULIN ASPART PER UNIT CHARGE SC SCH (08:23)
--- NOTE | 2024-06-21 12:43 | Electrocardiogram Report ---
Test Reason : Blood Pressure : */* mmHG Vent. Rate : 79 BPM Atrial Rate : 79 BPM P-R Int : 178 ms QRS Dur : 140 ms QT Int : 404 ms P-R-T Axes : 43 -71 46 degrees QTcB Int : 463 ms Normal sinus rhythm Left axis deviation Right bundle branch block Inferior infarct , age undetermined Abnormal ECG When compared with ECG of 08-Oct-2023 20:19, Vent. rate has increased by 27 bpm Right bundle branch block is now Present Inferior infarct is now Present Confirmed by Frank Fishman ([id number]) on 06/21/2024 12:43:09 PM Referred By: [facility] Confirmed By: Frank Fishman
[2024-06-21 14:37] LABS: Creatinine Urine Random 57.1 mg/dl
--- NOTE | 2024-06-21 19:29 | Billing Data ---
Date of Service June 21, 2024 Coding Level of Care Code 46481 INT INP/OBS CARE
[2024-06-21] MEDS: ROSUVASTATIN CALCIUM 20 MG TAB PO SCH (21:42)
[2024-06-22 07:09] LABS: Basophils # (auto) 0.02 K/uL (0.00-0.20); Basophils % (auto) 0.6 %; Eosinophils # (auto) 0.07 K/uL (0.00-0.50); Eosinophils % (auto) 2.1 %; Hematocrit (blood only) 41.9 % (42.0-52.0); Hemoglobin 13.8 g/dl (14.0-18.0); Immature Granulocytes # (auto) 0.02 K/uL (0.01-0.20); Immature Granulocytes % (auto) 0.6 %; Lymphocytes # (auto) 1.57 K/uL (1.20-3.40); Lymphocytes % (auto) 48.2 %; Mean Corpuscular Hgb Conc 32.9 g/dL (32.0-36.0); Mean Corpuscular Volume 81.8 fL (80.0-100.0); Mean Platelet Volume 9.9 fL (9.4-12.4); Monocytes # (auto) 0.49 K/uL (0.11-0.59); Neutrophils # (auto) 1.09 K/uL (1.40-6.50); Neutrophils % (auto) 33.5 %; Platelet Count 152 K/uL (130-400); RDW Coefficient of Variation 13.3 % (11.5-14.5); RDW Standard Deviation 40.2 fL (36.4-46.3); Red Blood Count 5.12 M/uL (4.70-6.10); White Blood Count 3.26 K/ul (4.8-10.8)
[2024-06-22 07:20] LABS: BUN Creatinine Ratio 12.4 (10-20); Calcium 8.7 mg/dl (8.6-10.3); Creatinine Clr Calc Pharmacy 50.1 ml/min; Potassium 4.4 mmol/L (3.5-5.1)
[2024-06-22 07:32] VITALS: RESP 16; TEMP 98.2; O2SAT 96
[2024-06-22 10:48] VITALS: BP 162/95; PULSE 59
--- NOTE | 2024-06-22 11:33 | Discharge Summary ---
Date of Service June 22, 2024 Admission Exam (Per Admitting) Constitutional The patient is awake, alert and oriented 3, well developed and well nourished, normocephalic and atraumatic, lying in bed and in no acute distress. HEENT--PERRL, EOMI, mucous membranes and oropharynx mildly dry Neck--supple. No JVD. No bruits. Thyroid normal, trachea midline, no adenopathy. Heart--normal S1 and S2. No murmurs, rubs or gallops. Lungs--clear bilaterally, no respiratory distress, no accessory muscle use. Abdomen--normal bowel sounds and soft. Extremities--no cyanosis or clubbing. No edema. Dermatologic--normal skin turgor, normal color, no abnormal lymph nodes, no rash. Neurologic--cranial nerves II through XII grossly intact. Rheumatologic--normal range of motion. Psychiatric--normal affect. 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
== END 2024-06-22 13:44 ==
LOC: SUATTDRO → ED 21:07 → 2N 21:07 → SUATTDRO 06-21 04:00 → 2N 06-21 05:05